=== PATIENT | female | born 1980 | race African-American/Black ===

== ENCOUNTER 2020-12-24 13:22 | Inpatient (IN) | payer OTHER ==
[2020-12-24 14:44] VITALS: BMI 19.1
[2020-12-24] MEDS ORDERED: MAGNESIUM HYDROX 2400MG/30ML ORAL SUSPENSION 30 ML CUP PO PRN (15:45)
[2020-12-24] MEDS ORDERED: METHOCARBAMOL 500 MG TABLET PO PRN (15:45)
[2020-12-24] MEDS ORDERED: BISMUTH SUBSALICYLATE 262 MG/15 ML BTL PO PRN (15:45)
[2020-12-24] MEDS ORDERED: LORazepam 1 MG TABLET PO PRN (15:45)
[2020-12-24] MEDS ORDERED: NICOTINE POLACRILEX 2 MG GUM BUC PRN (15:45)
[2020-12-24] MEDS ORDERED: MENTHOL/PHENOL 1 EACH UD MM PRN (15:45)
[2020-12-24] MEDS ORDERED: ONDANSETRON *ODT* 4 MG TABLET SL PRN (15:45)
[2020-12-24] MEDS ORDERED: MAGNESIUM CITRATE 300 ML BOTTLE PO PRN (15:45)
[2020-12-24] MEDS ORDERED: ACETAMINOPHEN 325 MG TABLET (FP) PO PRN ×2 (15:45)
[2020-12-24] MEDS ORDERED: MAG HYDROX/AL HYDROX/SIMETH 30 ML UNIT-DOSE CUP PO PRN (15:45)
[2020-12-24] MEDS ORDERED: IBUPROFEN 400 MG TABLET (FP) PO PRN (15:45)
[2020-12-24] MEDS ORDERED: LORazepam 2 MG TABLET ONE (16:13)
[2020-12-24] MEDS: LORazepam 2 MG TABLET PO SCH ×2 (16:18→22:47)
[2020-12-24] MEDS: hydrOXYzine PAMOATE 25 MG CAPSULE (FP) PO SCH ×2 (17:14→22:47)
[2020-12-24] MEDS: NICOTINE 14 MG/24 HOURS TOPICAL PATCH TD SCH (17:14)
[2020-12-24] MEDS: THIAMINE HCL 100 MG TABLET (FP) PO SCH (22:47)
[2020-12-24] MEDS: MELATONIN 5 MG TABLETS PO SCH (22:47)
[2020-12-25] MEDS: LORazepam 2 MG TABLET PO SCH ×4 (06:14→22:51)
[2020-12-25] MEDS: hydrOXYzine PAMOATE 25 MG CAPSULE (FP) PO SCH ×5 (06:14→22:50)
[2020-12-25] MEDS: NICOTINE 14 MG/24 HOURS TOPICAL PATCH TD SCH (10:08)
[2020-12-25] MEDS: PRENATAL VITAMINS W/ FOLIC ACID TABLET (FP) PO SCH (10:08)
[2020-12-25 10:09] LABS: HEMATOCRIT 40.3 % (32.4-45.2); HEMOGLOBIN 13.9 GM/dL (10.7-15.3); MCH 34.9 pg (25.7-33.7); MCHC 34.4 g/dl (32.0-36.0); MEAN CELL VOLUME 101.5 fl (80-96); MEAN PLT VOLUME 9.1 fl (7.5-11.1); PLATELET COUNT 246 K/MM3 (134-434); RBC 3.97 M/mm3 (3.60-5.2); RDW 12.9 % (11.6-15.6); WHITE BLOOD COUNT 4.5 K/mm3 (4.0-10.0)
[2020-12-25 10:20] LABS: ALBUMIN 4.2 g/dl (3.4-5.0); CALCIUM 9.8 mg/dL (8.5-10.1)
[2020-12-25 10:26] LABS: TOT PROT 7.7 g/dl (6.4-8.2)
[2020-12-25 10:27] LABS: BILIRUBIN,TOTAL 0.8 mg/dL (0.2-1); CREATININE 0.6 mg/dL (0.55-1.3)
[2020-12-25 11:11] LABS: HIV INTERPRETATION NEGATIVE (NEGATIVE)
[2020-12-25] MEDS ORDERED: FLUCONAZOLE 50 MG TABLET PO ONE (12:54)
[2020-12-25] MEDS ORDERED: MIRTAZAPINE 15 MG TABLET (FP) PO SCH (22:00)
[2020-12-25] MEDS: risperiDONE 0.5 MG TABLET PO SCH (22:50)
[2020-12-25] MEDS: THIAMINE HCL 100 MG TABLET (FP) PO SCH (22:50)
[2020-12-25] MEDS: MELATONIN 5 MG TABLETS PO SCH (23:02)
[2020-12-26] MEDS: LORazepam 1 MG TABLET PO SCH ×2 (07:54→10:15)
[2020-12-26] MEDS: hydrOXYzine PAMOATE 25 MG CAPSULE (FP) PO SCH ×2 (07:55→10:16)
[2020-12-26 09:00] VITALS: BP 104/84; PULSE 104; TEMP 96.1
[2020-12-26] MEDS: risperiDONE 0.5 MG TABLET PO SCH (10:15)
[2020-12-26] MEDS: PRENATAL VITAMINS W/ FOLIC ACID TABLET (FP) PO SCH (10:15)
[2020-12-26] MEDS: NICOTINE 14 MG/24 HOURS TOPICAL PATCH TD SCH (10:15)
[2020-12-27] MEDS ORDERED: LORazepam 0.5 MG TABLET PO PRN
[2020-12-27] MEDS ORDERED: LORazepam 0.5 MG TABLET PO SCH (05:00)
[2020-12-28] MEDS ORDERED: LORazepam 0.5 MG TABLET PO ONE (05:00)
== END 2020-12-26 11:26 | disposition left against medical advice (07) | DRG 770 ==
LOC: YASAS 13:22 → Y3N 15:13
PROVIDERS: ADMIT Allergy & Immunology; ATTEND Allergy & Immunology
PROC: HZ2ZZZZ Detoxification Services for Substance Abuse Treatment (ICD-10-PCS; principal; 2020-12-24)
DX: F10.230 Alcohol dependence with withdrawal, uncomplicated (principal); F14.20 Cocaine dependence, uncomplicated; F12.20 Cannabis dependence, uncomplicated; F17.210 Nicotine dependence, cigarettes, uncomplicated; F31.9 Bipolar disorder, unspecified; F19.24 Other psychoactive substance dependence with psychoactive substance-induced mood disorder; G47.00 Insomnia, unspecified; J45.909 Unspecified asthma, uncomplicated; L30.9 Dermatitis, unspecified; R63.4 Abnormal weight loss; Z68.1 Body mass index [BMI] 19.9 or less, adult; Z91.041 Radiographic dye allergy status; Z91.14 Patient's other noncompliance with medication regimen; Z59.0 Homelessness; Z56.0 Unemployment, unspecified
CPT/HCPCS: 36415; 80053; 81025; 85027; 86780; 87389; C9803; U0003; U0005